=== PATIENT | female | born 1950 | race Asian ===

== ENCOUNTER → 2019-09-21 15:26 | Outpatient (CLI) | payer MEDICARE, OTHER, SELFPAY ==
--- NOTE | 2019-09-21 | DI.MG.S_ITS ---
BILATERAL DIGITAL SCREENING MAMMOGRAM 3D/2D WITH CAD: 09/21/2019 CLINICAL: Routine screening. Comparison is made to exams dated: 09/24/2015 mammogram, 12/05/2013 mammogram, and 12/05/2012 mammogram - [facility]. The tissue of both breasts is predominantly fatty. Current study was also evaluated with a Computer Aided Detection (CAD) system. No significant masses, calcifications, or other findings are seen in either breast. There has been no significant interval change. IMPRESSION: NEGATIVE There is no mammographic evidence of malignancy. A 1 year screening mammogram is recommended. This exam was interpreted at Station ID: [id number]. NOTE: For mammograms, a report in lay terms will be sent to the patient. Approximately 15% of breast malignancies will not be visualized mammographically. In the management of a palpable breast mass, a negative mammogram must not discourage biopsy of a clinically suspicious lesion. Electronically Signed By: Cheo Michelle M.D., jr/obey:09/21/2019 15:54:19 copy to: Salvatore Weber MD letter sent: Normal Exam ACR BI-RADS Category 1: Negative 3341F
== END ==
PROVIDERS: PCP Family Medicine; Referring Provider Family Medicine; Visit Provider Family Medicine
DX: Z12.31 Encounter for screening mammogram for malignant neoplasm of breast (principal)
CPT/HCPCS: 77063; 77067

== ENCOUNTER 2022-05-15 08:07 | Day surgery (SDC) | payer MEDICARE, OTHER, SELFPAY ==
--- NOTE | 2022-05-15 | PATH_ITS ---
[facility] Accession Number: [id number] No. of containers..03 Tissue . 01 Material submitted: . PART A: colon - ANASTAMOSIS BIOPSY PART B: colon - TRANSVERSE COLON POLYP PART C: colon - DESCENDING COLON POLYP . 01 Diagnosis: A. Anastomosis, Biopsy: Small bowel mucosa with benign lymphoid aggregates, but with no other significant alterations. No active inflammation, granulomas, infectious organisms, dysplasia or malignancy identified. . B. Transverse Colon Polyp, Biopsy: Serrated polyp with focal crypt architectural distortion compatible with sessile serrated adenoma. . C. Descending Colon Polyp, Biopsy: Hyperplastic polyp. Benign lymphoid aggregate is also present. MRV 05/19/2022 1337 Local . 01 Electronically signed: . Chari Waite MD, Pathologist NPI- [id number] . 01 Gross description: . Part A: ANASTAMOSIS BIOPSY: Received in formalin are 2 fragment(s) of palmer, soft tissue measuring 0.2 x 0.2 x 0.2 cm to 0.5 x 0.3 x 0.2 cm submitted entirely in 1 cassette(s) Part B: TRANSVERSE COLON POLYP: Received in formalin are 3 fragment(s) of palmer, soft tissue measuring 0.2 x 0.2 x 0.2 cm to 0.3 x 0.3 x 0.1 cm submitted entirely in 1 cassette(s) Part C: DESCENDING COLON POLYP: Received in formalin are 2 fragment(s) of palmer, soft tissue measuring 0.2 x 0.2 x 0.1 cm to 0.6 x 0.2 x 0.2 cm submitted entirely in 1 cassette(s) /SUZE 05/18/2022 2345 Local . 01 Pathologist provided ICD-10: D12.3, D12.4, K63.89, Z12.11 . 01 CPT . 779204, [id number], 842326 Specimen Comment: A courtesy copy of this report has been sent to [facility] Pathology Performed at: 01 [facility] [address] [place] [address] [id number] MD Felipe Figueroa MD Phone: [phone]
[2022-05-15 08:33] VITALS: BMI 29.2
[2022-05-15 08:46] VITALS: BP 127/85; PULSE 86; RESP 16; TEMP 36.3; O2SAT 98
[2022-05-15] MEDS: LACTATED RINGERS 1,000 ML 84 ML IV (08:48)
--- NOTE | 2022-05-15 09:45 | PM.HP.1 ---
History of Present Illness History of Present Illness Date Patient Seen: 05/15/22 Time Patient Seen: 09:45 Chief complaint: [facility] [place] Narrative: Patient presents for colonoscopy. She had her 1st colonoscopy in 2012 at the [facility]. She had some large polyps and was sent to [facility] for another colonoscopy. At that time she was diagnosed with colon cancer and underwent surgical resection and had chemotherapy. In her follow-up exam around 2018 or 2019 more cancer was found and further resection was required. She follows with a cancer doctor in [place]. She thinks she probably does have a family history of colon cancer in her father. But she carries a personal history of both colon polyps and colon cancer. Otherwise she is not had any concerning symptoms no bleeding or changes in bowel habits [facility] Medical History (Updated 05/15/22 @ 09:47 by Krista Hardwick MD) Colon cancer Hyperlipemia Hypothyroid Surgical History (Updated 05/15/22 @ 08:31 by Susan Melgoza RN) History of colon resection Social History household members: significant other Smoking Status: Never smoker alcohol intake: never Meds Home Medications and Allergies Home Medications Medication Instructions Recorded Confirmed Type levothyroxine 100 mcg tablet 100 mcg PO DAILY 05/15/22 05/15/22 History (Synthroid) Allergies Allergy/AdvReac Type Severity Reaction Status Date / Time No Known Drug Allergies Allergy Verified 05/15/22 08:32 Exam Vital Signs (past 8 hours): - 05/15/22 08:46 Temperature 97.4 F L Pulse Rate 86 Respiratory Rate 16 Blood Pressure 127/85 Pulse Oximetry 98 Oxygen Delivery Method Room Air Oxygen Delivery Method Room Air Const General: cooperative, healthy appearing and comfortable Orientation: alert, awake and oriented x3 Eyes General: appearance normal, both eyes and all related structures Resp Effort & Inspection: normal respiratory effort and able to speak in complete sentences GI Palpation: soft and No tender Assessment & Plan Assessment and plan (1) Personal history of colon cancer: Status: Acute (2) History of colon polyps: Status: Acute (3) Family history of colon cancer in father: Status: Acute Assessment & Plan narrative: Ms. Mejia presents today for colonoscopy I discussed the risks benefits and alternatives including but not limited to perforation of the colon and an incomplete exam she fully understands these risks and would like to proceed.
--- NOTE | 2022-05-15 10:26 | PM.OP.COLON ---
Operative Date/Time/Diagnoses Date of procedure: 05/15/22 Time of procedure: 10:26 Pre-op diagnosis: History of colon cancer, history of colon polyps, family history of colon cancer, high-risk screening colonoscopy Post-op diagnosis: same Procedure & Clinicians Study performed: Colonoscopy and biopsy Same procedure as scheduled: Yes Surgeon: Krista Hardwick Procedure Notes Procedure in detail: Patient was taken to the endoscopy suite and placed in a left lateral decubitus position. A time-out was performed. An anesthesiologist induced conscious sedation and monitored the patient throughout the procedure. Digital rectal exam was performed there were no masses or strictures. Photograph was obtained of some hemorrhoidal skin tags. The colonoscope was then introduced into the anal canal and advanced through to the ileocolonic anastomosis. A photograph was obtained of this. Biopsies of the ileal mucosa were obtained. There was some grainy type quality to the mucosa, but most likely just secondary to its anatomy within the anastomosis and not thought to be malignancy. The scope was then withdrawn slowly for a total of 23 minutes. The prep was good Lejunior bowel prep score of 2. At the level of about distal transverse there was a small less than 1 cm sessile appearing polyp that was removed with biopsy forceps and sent for pathology. Further withdrawal revealed a very small less than half a cm descending colon polyp as well. This also was sent for pathology and removed in total. The scope was retroflexed and a photograph was obtained. Patient tolerated the procedure well and went in good condition to the postoperative care unit Specimen(s): none sent (1. Anastomosis biopsy 2. Transverse colon polyp 3. Descending colon polyp) Post-procedure Plan for aftercare: According to Oncology recommendations for post resection colon cancer screening. With her high-risk conditions I would recommend a colonoscopy in between 3-5 years. Will forward this report and pathology as well to primary care physician Dr. Adrien Arellano and Dr. Weber Oncology.
[2022-05-15 10:31] VITALS: BP 104/70; PULSE 66; RESP 14; TEMP 36; O2SAT 99
[2022-05-15 10:37] VITALS: BP 91/64; PULSE 62; RESP 18; O2SAT 100
[2022-05-15 10:42] VITALS: BP 117/74; PULSE 66; RESP 18; O2SAT 99
[2022-05-15 10:45] VITALS: BP 117/74; PULSE 61; RESP 12; O2SAT 100
== END 2022-05-15 11:08 | disposition home or self-care (01) ==
PROVIDERS: PCP Family Medicine; Referring Provider Surgery; Visit Provider Surgery
PROC: 0DJD8ZZ Inspection of Lower Intestinal Tract, Via Natural or Artificial Opening Endoscopic (ICD-10-PCS; CPT 45378; principal; 2022-05-15 09:15)
DX: Z12.11 Encounter for screening for malignant neoplasm of colon (principal); Z85.038 Personal history of other malignant neoplasm of large intestine; Z86.010 Personal history of colon polyps; Z80.0 Family history of malignant neoplasm of digestive organs; K64.4 Residual hemorrhoidal skin tags; D12.3 Benign neoplasm of transverse colon
CPT/HCPCS: 45380; J2704

== ENCOUNTER → 2023-08-17 07:40 | Outpatient (CLI) | payer MEDICARE, OTHER, SELFPAY ==
--- NOTE | 2023-08-17 07:42 | DI.MRI.S_ITS ---
PROCEDURE: MR SHOULDER LT WO CON INDICATIONS: Pain in left shoulder TECHNIQUE: Noncontrast oblique coronal T2 fast spin echo with fat saturation, oblique sagittal T1 spin echo and T2 fast spin echo with fat saturation, axial T1 spin echo and T2 fast spin echo with fat saturation through the shoulder. COMPARISON: None. FINDINGS: Image quality: Excellent. Rotator cuff: In the supraspinatus, there is low-grade interstitial tear in the most anterior footprint (8:7). There is additional low grade articular sided tear at the critical zone of the mid fiber (series 8, image 9). The infraspinatus is unremarkable. The teres minor is unremarkable. Mild tendinosis of the subscapularis, without tear. No muscle fatty atrophy or muscle edema. Bones and bursae: Mild degenerative changes of the acromioclavicular joint. Type 2 acromion. No os acromiale. Trace subacromial/subdeltoid bursitis. Mild subchondral cystic changes in the greater tuberosity, reactive. No acute fracture. Small area of high-grade chondral thinning in the medial superior humeral head. Additional multifocal high-grade chondral irregularity of the superior humeral head. Mild chondral thinning in the glenoid. Capsule and soft tissues: Anterior labral tear. No paralabral cyst. Mild tenosynovitis of the extra-articular biceps tendon. The intra-articular biceps tendon is unremarkable. Small glenohumeral effusion. Moderate subcoracoid bursitis. No intra-articular body. IMPRESSION: 1. Low-grade tear of the supraspinatus. 2. Moderate chondrosis of the glenohumeral joint. 3. Small glenohumeral effusion. Moderate subcoracoid bursitis. 4. Mild tenosynovitis of the extra-articular biceps tendon. Dictated by: Natalia Callejas M.D. on 08/17/2023 at 19:32 Approved by: Natalia Callejas M.D. on 08/17/2023 at 19:39
== END ==
LOC: MRI 07:41
PROVIDERS: PCP Nurse Practitioner Family; Referring Provider Nurse Practitioner Family; Visit Provider Nurse Practitioner Family
DX: S46.012A Strain of muscle(s) and tendon(s) of the rotator cuff of left shoulder, initial encounter (principal); M94.212 Chondromalacia, left shoulder; M25.412 Effusion, left shoulder; M65.812 Other synovitis and tenosynovitis, left shoulder; M75.52 Bursitis of left shoulder; M25.512 Pain in left shoulder
CPT/HCPCS: 73221

== ENCOUNTER → 2023-10-07 09:42 | Outpatient (CLI) | payer MEDICARE, OTHER, SELFPAY ==
--- NOTE | 2023-10-07 09:43 | DI.RAD.S_ITS ---
PROCEDURE: XR DEXA AXIAL SKELETON INDICATIONS: ASYMPTOMATIC MENOPAUSAL STATE COMPARISON: None. FINDINGS: Lumbar Spine: Bone mineral density 0.935 g/cm2, T score -1.0. Left Hip: Bone mineral density 0.947 g/cm2, T score 0.0. Left Femoral Neck: Bone mineral density 0.747 g/cm2, T score -0.9. Right Hip: Bone mineral density 0.899 g/cm2, T score -0.4. Right Femoral Neck: Bone mineral density 0.691 g/cm2, T score -1.4. Fracture Risk Calculation (when applicable): 10-year fracture risk of a major osteoporotic fracture 9.8% and of a hip fracture 1.4%. (T score greater or equal to -1.0 to: NORMAL) (T score from -1.1 to -2.4: OSTEOPENIA) (T score less than or equal to -2.5: OSTEOPOROSIS) IMPRESSION: Osteopenia. Follow-up guidelines as follows: Osteoporosis: Consider a repeat DEXA and Vertebral Fracture Assessment (VFA) exam in 2 years or sooner if medically necessary, to reassess this patient's status. Osteopenia: Consider a repeat DEXA in 2-3 years to reassess this patient's status, or if there is a new clinical indication. Normal: Consider a repeat DEXA in 5 years or sooner, or if there is a new clinical indication. All treatment decisions require clinical judgment and consideration of individual patient factors, including patient preferences, comorbidities, previous drug use, risk factors not captured in the FRAX model (e.g., frailty, falls, vitamin D deficiency, increased bone turnover, interval significant decline in bone density ) and possible under- or over-estimation of fracture risk by FRAX. In addition, the NOF Guide recommends that FDA-approved medical therapies be considered in postmenopausal women and men age >= 50 years with a: * Hip or vertebral (clinical or morphometric) fracture * T-score of <=-2.5 at the spine or hip * Ten-year fracture probability by FRAX of >= 3% for hip fracture or >=20% for major osteoporotic fracture. People with diagnosed cases of osteoporosis or at high risk for fracture should have regular bone mineral density tests. For patients eligible for Medicare, routine testing is allowed once every 2 years. The testing frequency can be increased to one year for patients who have rapidly progressing disease, those who are receiving or discontinuing medical therapy to restore bone mass, or have additional risk factors. Dictated by: Montrell Hewitt M.D. on 10/07/2023 at 22:43 Approved by: Montrell Hewitt M.D. on 10/07/2023 at 22:45
== END ==
PROVIDERS: PCP Nurse Practitioner Family; Referring Provider Nurse Practitioner Family; Visit Provider Nurse Practitioner Family
DX: M85.851 Other specified disorders of bone density and structure, right thigh (principal); Z78.0 Asymptomatic menopausal state
CPT/HCPCS: 77080

== ENCOUNTER → 2024-12-11 18:56 | Outpatient (CLI) | payer MEDICARE, OTHER, SELFPAY ==
--- NOTE | 2024-12-11 19:02 | DI.MRI.S_ITS ---
PROCEDURE: MR FOOT RT WO/W CON INDICATIONS: PAIN in right foot TECHNIQUE: Noncontrast coronal T1 spin echo and STIR, sagittal T1 spin echo with fat saturation and STIR, axial T1 spin echo and T2 fast spin echo with fat saturation. After the administration of contrast, axial/sagittal/coronal T1 spin echo with fat saturation through the right foot. COMPARISON: [facility] [place], CR, XR FOOT 3 VIEWS WEIGHT BEARING LEFT, 09/28/2024, 11:07. FINDINGS: Image quality: Excellent. Bones: Fiducial marker is placed over plantar aspect of mid to forefoot at the level of 1st metatarsal shaft. [id number] midfoot and forefoot joint osteoarthritic changes are seen most notably involving 1st MTP joint and articulation between 1st metatarsal head and sesamoids. There is no marrow edema. No acute fracture or dislocation. No suspicious intraosseous lesions. No metatarsal stress fractures. No area of abnormal contrast enhancement is noted. Soft tissues: No enhancing soft tissue mass or drainable fluid collection. Thickened flexor hallucis longus tendon at the level of distal 1st metatarsal shaft and 1st MTP joint is seen concerning for mild tendinosis. Rest of the extensor and flexor tendons are intact. The scanned muscles demonstrate normal overall bulk and internal signal. IMPRESSION: 1. No enhancing soft tissue mass or drainable fluid collection at the area of concern. 2. Mild tendinosis involving flexor hallucis longus tendon at the level of distal 1st metatarsal shaft and 1st MTP joint. Rest of the extensor and flexor tendons are intact. 3. No signal abnormality is seen in plantar foot muscles. 4. Osteoarthritic changes are noted throughout midfoot and forefoot most notably involving great toe as above. No marrow edema. No fracture or dislocation. No area of abnormal intraosseous enhancement. Dictated by: Mike Lambert M.D. on 12/13/2024 at 11:53 Approved by: Mike Lambert M.D. on 12/13/2024 at 11:58
== END ==
PROVIDERS: Referring Provider Podiatrist; Visit Provider Podiatrist
DX: M67.471 Ganglion, right ankle and foot (principal); M79.671 Pain in right foot; M67.971 Unspecified disorder of synovium and tendon, right ankle and foot
CPT/HCPCS: 73720; A9579